=== PATIENT | male | born 1990 | race Caucasian/White ===

== ENCOUNTER 2017-05-18 21:31 | Inpatient (IN) | payer OTHER ==
[2017-05-19] MEDS ORDERED: Acetaminophen 325 MG TAB PO PRN (03:56)
[2017-05-19] MEDS ORDERED: Senokot 8.6 MG TAB PO PRN (03:56)
[2017-05-19] MEDS ORDERED: Morphine 4 MG/ML VIAL SLOW IVP PRN (04:09)
--- NOTE | 2017-05-19 04:32 | HP ---
REASON FOR ADMISSION: Perirectal abscess, immunocompromised. HISTORY OF PRESENTING ILLNESS: Patient gives history of having popped a pimple on his left perianal area on Wednesday. This started to hurt him from Wednesday. He thinks that he might have squeezed too hard to drain the pus out. As the pain was getting worse and started to swell up, patient went to [facility] yesterday evening. He has had incision and drainage done there. Subsequently, he has had a CAT scan done, which does not reveal any residual abscess there. Patient takes Humira every 2 weeks for ankylosing spondylitis. PAST MEDICAL AND SURGICAL HISTORY: History of ankylosing spondylitis, for which he follows up with Dr. 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 CURRENT MEDICATIONS: Humira q.2 weeks, Motrin p.r.n. for pain. PERSONAL HISTORY: Smokes half pack a day, does not abuse alcohol or drugs. Works in a restaurant. Patient also abuses marijuana and no other drug abuse. FAMILY HISTORY: Mother has chronic back pain. Father has GERD, otherwise he is healthy. REVIEW OF SYSTEMS: The following complete review of systems was negative, unless otherwise mentioned in the HPI or below: Constitutional: Weight loss or gain, ability to conduct usual activities. Skin: Rash, itching. Eyes: Double vision, pain. ENT/Mouth: Nose bleeding, neck stiffness, pain, tenderness. Cardiovascular: Palpitations, dyspnea on exertion, orthopnea. Respiratory: Shortness of breath, wheezing, cough, hemoptysis, fever, or night sweats. Gastrointestinal: Poor appetite, abdominal pain, heartburn, nausea, vomiting, constipation, or diarrhea. Genitourinary: Urgency, frequency, dysuria, nocturia. Musculoskeletal: Pain, swelling. Neurologic/Psychiatric: Anxiety, depression. Allergy/Immunologic: Skin rash, bleeding tendency. PHYSICAL EXAMINATION: GENERAL: The patient is a 27-year-old male who is currently in pain in his gluteal area with abscess located. VITAL SIGNS: Blood pressure 112/70, pulse 60 per minute, respiratory rate 16 per minute, temperature 97.9 degrees Fahrenheit, saturating 98% on room air. NECK: Supple. No elevated JVD. EYES: Extraocular muscles intact. Pupils reacting to light. Oral cavity, mucous membranes are moist. No exudates or congestion. CARDIOVASCULAR SYSTEM: S1, S2 heard. Regular rhythm. RESPIRATORY SYSTEM: Air entry 2+ bilateral. No rales or rhonchi. ABDOMEN: Soft, bowel sounds heard. No tenderness, rigidity, or guarding. EXTREMITIES: Right inner gluteal area around the lateral aspect of anus has had incision and drainage done with dressing packed. He has erythema around this. No peripheral edema or calf tenderness. VASCULAR SYSTEM: Peripheral pulses 2+ bilateral. No ischemic ulcerations or gangrene. CENTRAL NERVOUS SYSTEM: No gross focal deficits seen. Patient is alert, awake , oriented x3. PSYCHIATRIC SYSTEM: Patient's mood is euthymic. No hallucinations or delusions. LABORATORY AND X-RAY FINDINGS: CT of the pelvis with IV contrast done shows left gluteal cellulitis with evidence of packed abscess cavity. No residual fluid collection or extension of infection is seen. Electrolytes serum bicarbonate is 18, BUN 11, creatinine 0.8, glucose 96. CRP is 3.0, albumin is 4.2. White count of 15, H&H 16 and 47, platelet count 244 with 67% neutrophils. CLINICAL IMPRESSION AND PLAN: Patient will be under observation on medical floor for perirectal abscess in an immunocompromised patient. We will await cultures. Patient will be on Zosyn. He has had incision and drainage done by Dr. Mancia at [facility]. He will be on morphine p.r.n. for pain along with Colace and bowel regimen. We will follow up on the cultures and likely discharge once preliminary cultures are available. Patient takes Humira once every 2 weeks for his ankylosing spondylitis. [facility]
[2017-05-19 08:38] VITALS: BMI 36.6
[2017-05-19] MEDS ORDERED: FLU VACC QS2017-18 36 mo. & older 0.5 ML SYRINGE IM ONE ×2 (09:15→10:30)
[2017-05-19] MEDS: Piperacillin/Tazobactam 4.5 GM in Sodium Chloride 0.9% 100 ML IVPB SCH ×3 (09:39→19:52)
[2017-05-19] MEDS: Famotidine 20 MG TAB PO SCH ×2 (09:40→20:41)
[2017-05-19] MEDS: Docusate 100 MG CAP PO SCH ×2 (09:40→20:41)
[2017-05-19] MEDS: Polyethylene Glycol 3350 17 GM Packet PO SCH (09:40)
[2017-05-19] MEDS: Enoxaparin Sodium 40 MG/0.4 ML SYRINGE SC SCH (09:42)
--- NOTE | 2017-05-19 14:27 | PDOC.PN ---
- Subjective Encounter Start Date: 05/19/17 Encounter Start Time: 14:10 Subjective: f/u perirectal abscess s/p I&D with packing placed on current Zosyn. -: Some rectal pain with movement. No fever or chills. - Objective Resuscitation Status: Resuscitation Status FULL:Full Resuscitation MAR Reviewed: Yes Vital Signs & Weight: Vital Signs (12 hours) Temp Pulse Resp BP BP Pulse Ox 05/19/17 12:09 98.1 F 63 20 109/52 L 05/19/17 08:37 97.5 F L 65 18 134/65 97 05/19/17 08:00 97.5 F L 65 18 134/65 97 Weight Admit Weight 9.524 oz Weight 270 lb I&O: 05/18/17 05/19/17 05/20/17 06:59 06:59 06:59 Intake Total 370.05 Balance 370.05 Additional Labs: Laboratory Tests 05/18/17 05/18/17 17:07 17:07 WBC 15.0 H Neutrophils % 67.3 Neutrophils # 10.1 H Creatinine 0.84 C-Reactive Protein 3.08 H Radiology Reviewed by me: Yes (CT Pelvis - L gluteal cellulitis with packing in abscess cavity) Phys Exam - Physical Examination Constitutional: NAD HEENT: PERRLA, oral pharynx no lesions Neck: no JVD, supple Respiratory: no wheezing, clear to auscultation bilateral Cardiovascular: RRR Gastrointestinal: soft, non-tender, no distention, positive bowel sounds Musculoskeletal: no edema, pulses present Neurological: normal sensation, moves all 4 limbs Psychiatric: A&O x 3 Skin: normal turgor, cap refill <2 seconds Dx/Plan (1) Perirectal abscess Code(s): K61.1 - RECTAL ABSCESS Status: Acute Comment: s/p I&D, continue local wound care, await final cx results, continue Zosyn and add Vancomycin 1gm IV q12h (2) Status post incision and drainage Code(s): Z98.890 - OTHER SPECIFIED POSTPROCEDURAL STATES Status: Acute (3) Ankylosing spondylitis Code(s): M45.9 - ANKYLOSING SPONDYLITIS OF UNSPECIFIED SITES IN SPINE Status: Chronic Comment: Chronic, stable - Plan plan discussed w/ family, continue antibiotics, out of bed/ambulate, DVT proph w /SCDs Stable overall -: Continue Zosyn and add Vancomycin -: WCT with local care -: ? Alexis huffman -: AM lab: BMP, CBC * .
[2017-05-19] MEDS ORDERED: Vancomycin HCl 1 GM in Premix Bag 1 BAG IVPB SCH (15:00)
[2017-05-19] MEDS: Vancomycin HCl 1.75 GM in Sodium Chloride 0.9% 500 ML IVPB SCH (17:32)
[2017-05-20] MEDS ORDERED: MORPHINE 10 MG/ML SYRINGE SLOW IVP PRN (02:03)
[2017-05-20] MEDS: Piperacillin/Tazobactam 4.5 GM in Sodium Chloride 0.9% 100 ML IVPB SCH ×4 (02:20→20:51)
[2017-05-20] MEDS: Vancomycin HCl 1.75 GM in Sodium Chloride 0.9% 500 ML IVPB SCH ×2 (04:44→16:35)
[2017-05-20 05:25] LABS: #Basophils 0.1 thou/uL (0.0-0.2); #Eosinphils 0.5 thou/uL (0.0-0.7); #Lymphocytes 3.8 thou/uL (1.20-3.40); #Monocytes 1.1 thou/uL (0.11-0.59); #Neutrophils 5.1 thou/uL (1.40-6.50); %Basophils 0.6 % (0.0-1.0); %Eosinophils 5.1 % (0.0-10.0); %Lymphocytes 36.1 % (21.0-51.0); %Monocytes 10.1 % (0.0-10.0); Hematocrit 43.6 % (42.0-52.0); Mean Platelet Volume 7.3 fL (7.4-10.4); Red Blood Cell (RBC) Count 4.72 mill/uL (4.70-6.10); White Blood Cell (WBC) Count 10.5 thou/uL (4.8-10.8)
[2017-05-20 05:51] LABS: Anion Gap 9 mmol/L (10-20); BUN (Urea Nitrogen) 7 mg/dL (8.9-20.6); Calc. Creatinine Clearance 233 mL/min (70-130); Calcium 9.2 mg/dL (7.8-10.44); Carbon Dioxide 26 mmol/L (22-29); Chloride 106 mmol/L (98-107); Estimated GFR-MDRD Greater than 90
[2017-05-20] MEDS: Docusate 100 MG CAP PO SCH ×2 (08:45→20:54)
[2017-05-20] MEDS: Enoxaparin Sodium 40 MG/0.4 ML SYRINGE SC SCH (08:46)
[2017-05-20] MEDS: Famotidine 20 MG TAB PO SCH ×2 (08:46→20:54)
[2017-05-20] MEDS: Polyethylene Glycol 3350 17 GM Packet PO SCH (08:46)
--- NOTE | 2017-05-20 11:17 | PDOC.PN ---
- Subjective Encounter Start Date: 05/20/17 Encounter Start Time: 11:05 Subjective: f/u for perirectal abscess currently on Zosyn and Vancomycin. Overall -: feels better. No fever. Still with drainage noted on dressings. - Objective Resuscitation Status: Resuscitation Status FULL:Full Resuscitation MAR Reviewed: Yes Vital Signs & Weight: Vital Signs (12 hours) Temp Pulse Resp BP BP Pulse Ox 05/20/17 07:39 97.6 F 63 16 110/58 L 98 05/20/17 04:35 97.8 F 72 18 116/50 L 97 05/20/17 00:00 98.0 F 66 18 114/57 L 98 Weight Admit Weight 9.524 oz Weight 270 lb I&O: 05/19/17 05/20/17 05/21/17 06:59 06:59 06:59 Intake Total 2300.05 Balance 2300.05 Result Diagrams: 05/20/17 05:05 05/20/17 05:05 Additional Labs: Microbiology 05/18/17 17:30 Venous blood - Right Arm Blood Culture - Preliminary Specimen has been received and culture in progress. No Growth to date. 05/18/17 17:20 Venous blood - Right Arm Blood Culture - Preliminary Specimen has been received and culture in progress. No Growth to date. Laboratory Tests 05/18/17 05/18/17 17:07 17:07 WBC 15.0 H Neutrophils % 67.3 Neutrophils # 10.1 H Creatinine 0.84 C-Reactive Protein 3.08 H Phys Exam - Physical Examination Constitutional: NAD HEENT: PERRLA, oral pharynx no lesions Neck: no JVD, supple Respiratory: no wheezing, clear to auscultation bilateral Cardiovascular: RRR Gastrointestinal: soft, non-tender, no distention, positive bowel sounds Musculoskeletal: no edema, pulses present Neurological: normal sensation, moves all 4 limbs Psychiatric: A&O x 3 Skin: normal turgor, cap refill <2 seconds Dx/Plan (1) Perirectal abscess Code(s): K61.1 - RECTAL ABSCESS Status: Acute Comment: s/p I&D, continue local wound care, await final cx results, continue Zosyn and add Vancomycin 1.75gm IV q12h, continue IV abx another 24h then convert to po (2) Status post incision and drainage Code(s): Z98.890 - OTHER SPECIFIED POSTPROCEDURAL STATES Status: Acute (3) Ankylosing spondylitis Code(s): M45.9 - ANKYLOSING SPONDYLITIS OF UNSPECIFIED SITES IN SPINE Status: Chronic Comment: Chronic, stable - Plan continue antibiotics, out of bed/ambulate, DVT proph w/SCDs Stable overall -: Continue Vancomycin and Zosyn another 24h then convert to po -: Pain control as indicated -: WCT for local care -: Likely home in am * .
[2017-05-21] MEDS: Piperacillin/Tazobactam 4.5 GM in Sodium Chloride 0.9% 100 ML IVPB SCH ×2 (01:44→10:15)
[2017-05-21] MEDS: Vancomycin HCl 1.75 GM in Sodium Chloride 0.9% 500 ML IVPB SCH (04:33)
[2017-05-21] MEDS: Ondansetron HCl/PF 4 MG/2 ML Vial IVP PRN ×2 (04:34→10:19)
[2017-05-21] MEDS: Famotidine 20 MG TAB PO SCH (10:15)
[2017-05-21] MEDS: Docusate 100 MG CAP PO SCH (10:15)
[2017-05-21] MEDS: Polyethylene Glycol 3350 17 GM Packet PO SCH (10:16)
[2017-05-21] MEDS: Enoxaparin Sodium 40 MG/0.4 ML SYRINGE SC SCH (10:16)
--- NOTE | 2017-05-21 11:48 | DIS ---
DATE OF ADMISSION: 05/18/2017 DATE OF DISCHARGE: 05/21/2017 DISCHARGE DIAGNOSES: 1. Perirectal abscess, resolving. 2. Status post incision and drainage of perirectal abscess. 3. Leukocytosis, secondary to #1, resolved. 4. History of ankylosing spondylitis with prior immunosuppressive therapy. CONSULTATIONS: Wound care service. PERTINENT LABORATORY AND X-RAY FINDINGS: White blood cell count ranged between 10.5-15.0. Basic met abolic profile within normal limits. Blood cultures x2 dated 05/18/2017 showed no growth at [address] of the pelvis dated 05/18/2017 showed left gluteal cellulitis with evidence of packed abscess c avity. HOSPITAL COURSE: Patient was admitted to the medical floor after initially presenting with perirecta l abscess, status post incision and drainage in the emergency department. CT imaging of the pelvis s howed evidence of cellulitic changes with wound packing in place. The patient was placed on broad-sp ectrum antibiotic therapy with vancomycin and Zosyn and monitored clinically. Blood cultures remain negative at 48 hours and patient received local wound care with wound packing changes throughout the hospital course. Patient overall clinically stabilized with local care and antibiotic therapy. Woun d packing was discontinued with recommendations for local hygiene and continuation of antibiotic ther apy after discharge. Overall, the patient remained clinically stable throughout the hospital course and ready for discharge on 05/21/2017. DISCHARGE MEDICATIONS: 1. Augmentin 875 mg 1 tab p.o. b.i.d. x7 days. 2. Humira 40 mg subcutaneously every 2 weeks. FOLLOWUP: The patient may follow up with a local primary care provider in the [facility]. The patient will seek out his own provider. CONDITION ON DISCHARGE: Stable. ACTIVITY: Ad jocelyne. DIET: Regular. CODE STATUS: FULL. DISPOSITION: Home, 05/21/2017.
[2017-05-21 12:32] VITALS: BP 144/63; TEMP 97.7
== END 2017-05-21 13:40 | disposition home or self-care (01) | DRG 394 ==
LOC: ERS 21:31 → OBSVTOIN 23:52 → ERHOLD 23:52 → 3SE 05-19 07:58
PROVIDERS: ADMIT Internal Medicine; ATTEND Internal Medicine
DX: K61.1 Rectal abscess (principal); L03.317 Cellulitis of buttock; F17.210 Nicotine dependence, cigarettes, uncomplicated; K21.9 Gastro-esophageal reflux disease without esophagitis; M45.9 Ankylosing spondylitis of unspecified sites in spine; F12.10 Cannabis abuse, uncomplicated; Z79.899 Other long term (current) drug therapy; Z23 Encounter for immunization
CPT/HCPCS: 36415; 80048; 85025; 90471; 90682; 90732; 96374; 99406; A4216; G0008; G0009; J1650; J2270; J2405; J2543; J3370; J7050; Q2036